=== PATIENT | female | born 1960 | race Caucasian/White ===

== ENCOUNTER → 2018-10-19 | Outpatient (CLI) | payer OTHER ==
[~2018-10-19] MED LIST: AZITHROMYCIN 2250 MG PO; CEFDINIR300 MG PO; MUCINEX600 MG PO; PREDNISONE 1 MG1 M1; PREDNISONE 20 M20 MG PO; SYNTHROID100 MC1 PO; VENTOLIN HFA 1818 GM INH
== END ==
LOC: M.LAB 13:00 → M.CT 13:30 → M.LAB 13:57
PROVIDERS: Family Medicine
DX: J43.2 Centrilobular emphysema (principal); R91.8 Other nonspecific abnormal finding of lung field; J98.4 Other disorders of lung; E03.9 Hypothyroidism, unspecified; E66.8 Other obesity; F17.210 Nicotine dependence, cigarettes, uncomplicated; Z88.8 Allergy status to other drugs, medicaments and biological substances; Z80.3 Family history of malignant neoplasm of breast; Z68.29 Body mass index [BMI] 29.0-29.9, adult

== ENCOUNTER 2018-10-21 08:36 | Inpatient (IN) | payer OTHER ==
[~2018-10-21] VITALS: Ht 154.9 cm; Wt 71.7 kg
[2018-10-21 08:40] VITALS: BP 137/67
[2018-10-21] MEDS ORDERED: SYNTHROID100 MC1 PO (08:48)
[2018-10-21] MEDS ORDERED: PREDNISONE 1 MG1 M1 (08:49)
[2018-10-21 08:59] LABS: ABSOLUTE LYMPHOCYTES 1.2 thou/uL (0.8-5.3); ABSOLUTE MONOCYTES 0.9 thou/uL (0.0-1.2); ABSOLUTE NEUTROPHILS 6.4 thou/uL (1.6-8.1); BASOPHILS 0.5 %; EOSINOPHILS 0.1 %; HEMATOCRIT 40.4 % (37.0-47.0); HEMOGLOBIN 13.7 gm/dL (12.0-15.0); LYMPHOCYTES 14.2 %; MCH 32.2 pg (26.0-34.0); MCHC 33.8 g/dL (28.0-37.0); MCV 95.2 fL (80.0-100.0); MONOCYTES 10.8 %; MPV 7.9 fl. (7.2-11.1); NUCLEATED RBCS 0 /100WBC; PLATELET COUNT* 304 thou/uL (150-400); POLYS 74.4 %; RBC 4.25 mil/uL (4.20-5.00); WBC 8.7 thou/uL (4.0-11.0)
[2018-10-21 09:10] LABS: APTT 30.5 Seconds (25.0-31.3); PROTIME 10.1 Seconds (9.20-11.50)
[2018-10-21 09:12] LABS: ANION GAP 6 mmol/L (7-16); BUN 28 mg/dL (7-18); CALCIUM 9.4 mg/dL (8.5-10.1); CHLORIDE 97 mmol/L (98-107); CO2 33 mmol/L (21-32); CREATININE 0.8 mg/dL (0.6-1.3); GLUCOSE 129 mg/dL (70-99); POTASSIUM 4.1 mmol/L (3.5-5.1); SODIUM 136 mmol/L (136-145)
[2018-10-21 09:19] LABS: ALKALINE PHOSPHATASE 71 U/L (46-116); LIPASE 102 U/L (73-393); MAGNESIUM 2.2 mg/dL (1.8-2.4); NT-PRO BRAIN NAT PEPTIDE 908 pg/mL (<300); SGOT 27 U/L (15-37); SGPT 38 U/L (30-65); TOTAL BILIRUBIN 0.3 mg/dL (<0.1-1.0); TOTAL PROTEIN 8.3 g/dL (6.4-8.2); TROPONIN-I LEVEL <0.06 ng/mL (<0.06)
[2018-10-21 09:30] LABS: BE 5.7 mmol/L (-2 to +3); pH 7.336 (7.340-7.450)
[2018-10-21 09:33] LABS: PCO2 64.5 mmHg (35.0-45.0); PO2 56.4 mmHg (75.0-100.0)
--- NOTE | 2018-10-21 11:47 | NUR ---
LUNCH TRAY ORDERED FOR PT AT THIS TIME.
[2018-10-21 13:30] VITALS: BP 115/58
--- NOTE | 2018-10-21 15:21 | EKG ---
[place] [address] ELECTROCARDIOGRAM REPORT Name: JAYDEN ROSENTHAL Room: [place] [address] ADM IN [facility]#: [id number] Admission: 10/21/18 Attend Phys: Wm Monk MD Discharge: Date of : 56 Report #: [id number] THIS REPORT FOR: //name// [facility] ED Test Date: 2018-10-21 Test Time: 08:56:38 Pat Name: JAYDEN MARTINEZNCER Department: Room: [facility] Gender: F [employer] Dies: Leigh Ann VARGAS : 1960 Requested By: Saul Rose Order Number: [id number] MD: Waqas Rodriguez Measurements Intervals [place] Rate: 98 P: 65 HI: 134 QRS: 67 QRSD: 96 T: 49 QT: 352 QTc: 450 Interpretive Statements Sinus rhythm Minimal ST depression, inferior leads No previous ECG available for comparison Electronically Signed On 10-21-2018 15:20:52 CDT by Waqas Rodriguez [email or web address] <ELECTRONICALLY SIGNED> By: Waqas Rodriguez MD, [facility] 10/21/18 1520 [phone] Waqas Rodriguez MD, [facility] /EPI
[2018-10-21 17:32] VITALS: BP 118/60
[2018-10-21 17:40] VITALS: BP 123/61
--- NOTE | 2018-10-21 18:41 | NUR ---
PATIENT ARRIVED FROM ER THIS EVENING. PATIENT SETTLED TO ROOM. HISTORY, ASSESSMENT AND VITALS COMPLETED AND DOCUMENTED. PATIENT DENIES ANY PAIN. PATIENT DENIES SHORTNESS OF BREATH BUT IS ON 4L/NC WITH OXYGEN SATURATION AT 91%. PATIEN TIS UP AD PINO, EXTENTION TUBING PROVIDED FOR OXYGEN. PATIENT DENIES ANY NEEDS AT THIS TIME. CALL LIGHT WITHIN REACH. WILL CONTINUE TO MONITOR.
[2018-10-21 20:15] VITALS: BP 117/66
[2018-10-22 05:06] LABS: HEMATOCRIT 36.7 % (37.0-47.0); HEMOGLOBIN 12.6 gm/dL (12.0-15.0); MCH 32.7 pg (26.0-34.0); MCHC 34.4 g/dL (28.0-37.0); MCV 95.1 fL (80.0-100.0); MPV 8.1 fl. (7.2-11.1); RBC 3.86 mil/uL (4.20-5.00); RDW-CV 14.1 % (10.5-14.5); WBC 5.9 thou/uL (4.0-11.0)
--- NOTE | 2018-10-22 05:21 | NUR ---
PT SLEPT MOST OF SHIFT. ASSESSMENT DOCUMENTED. MEDS GIVEN PER E-MAR. IV PATENT. NO REPORTS OF PAIN OR NAUSEA. ON 4L NC THIS SHIFT. WILL CONTINUE WITH PLAN OF CARE.
[2018-10-22 06:21] LABS: CALCIUM 9.3 mg/dL (8.5-10.1); CREATININE 0.6 mg/dL (0.6-1.3); MAGNESIUM 2.4 mg/dL (1.8-2.4)
[2018-10-22 08:00] VITALS: BP 107/60
--- NOTE | 2018-10-22 10:23 | NUR ---
Pt is A&O. Resides at home alone. Active and independent. No DME. No hx of HH or SNF. Goal is home at dc. Pt is hopeful that she will wean off o2, does not want home o2 at dc. Following.
--- NOTE | 2018-10-22 16:16 | NUR ---
PATIENT UP TO SHOWER THIS AFTERNOON, PATIENT REFUSED TO WEAR HER 5L NC. EDUCATION GIVEN. IV SL, SCHED ABX INFUSING ORDERED. OVERNIGHT OXIMETRY TO BE DONE. PATIENT HOPING TO GO HOME TOMORROW.
[2018-10-22 17:11] VITALS: BP 119/44
[2018-10-22 21:00] VITALS: BP 102/37
[2018-10-22 21:20] VITALS: BP 139/66
[2018-10-23 04:00] VITALS: BP 107/50
--- NOTE | 2018-10-23 07:28 | NUR ---
PT ALERT AND ORIENTED. UP AD PINO. VSS ON 5L NC. PT TAKES O2 OFF TO GO TO BATHROOM. OVERNIGHT OXIMETRY. MEDS GIVEN AND DOCUMENTED PER EMAR. PT PLEASANT THIS SHIFT. CALL LIGHT WITHIN REACH. HOURLY ROUNDINGS MADE. WILL CONTINUE PLAN OF CARE.
[2018-10-23 07:40] VITALS: BP 100/66
[2018-10-23] MEDS ORDERED: VENTOLIN HFA 1818 GM INH (08:38)
[2018-10-23] MEDS ORDERED: PREDNISONE 20 M20 MG PO (08:38)
[2018-10-23] MEDS ORDERED: MUCINEX600 MG PO (08:38)
[2018-10-23] MEDS ORDERED: AZITHROMYCIN 2250 MG PO (08:38)
[2018-10-23] MEDS ORDERED: CEFDINIR300 MG PO (08:38)
--- NOTE | 2018-10-23 16:31 | NUR ---
PATIENT OK TO DISCHARGE IF ABLE TO GO ON RA. PER OVERNIGHT OXIMETRY PATIENT NEEDING 3L WHILE SLEEPING. DR. LOZANO NOTIFIED AND AWARE THAT PATIENT QUALIFIED FOR HS O2. PER DR. LOZANO IF PATIENT DID NOT REQUIRE 02 WHILE AMBULATING THEN OK TO GO HOME. RT NOTIFIED AND AMBULATED PATIENT. PATIENT 78% ON RA AND REQUIRING 6L WITH AMBULATION. DR. LOZANO NOTIFIED AND HOLD DISCHARGE AT THIS TIME. IV REMAINS SL, STEROIDS DAILY AND ABX PO.
[2018-10-23 16:44] VITALS: BP 112/47
[2018-10-23 18:19] VITALS: BP 112/47
--- NOTE | 2018-10-24 05:49 | NUR ---
PT REMAINED ALERT AND ORIENTED. VITALS STABLE WITH 3L BY NC. PT DENIED PAIN. MEDS GIVEN ORDERED. NO NAUSEA OR VOMITING. UP AD PINO. WILL CONTINUE TO MONITOR.
[2018-10-24 09:50] VITALS: BP 111/56
[2018-10-24 16:00] VITALS: BP 112/49
[2018-10-24 20:30] VITALS: BP 109/53
[2018-10-25 07:50] VITALS: BP 109/53
--- NOTE | 2018-10-25 08:11 | NUR ---
Alert and oriented x 4. Vitals are stable. O2 sat was 90-92% on 2L n/c. She denied any pain. She has been coughing. She has slept well.
[2018-10-25 15:30] VITALS: BP 112/47
--- NOTE | 2018-10-25 15:45 | NUR ---
Pt to dc home alone today. Pt oxygen ordered through [facility], JUANCARLOS faxed referral, order and info to Marielle with [facility]. [facility] spoke with pt and no other dc needs expressed. [facility] [place] [phone] fax [phone]
[2018-10-25 15:54] VITALS: BP 112/47
--- NOTE | 2018-10-25 15:55 | NUR ---
ASSESSSMENT COMPLETE. PT DC HOME WITH PRESCRIPTIONS AND DC INSTRUCTIONS GIVEN. PT VERBALIZES UNDERSTANDING. OXYGEN DELIVERED TO PATIENT, EDUCATION PROVIDED AND PT VERBALIZES UNDERSTANDING. PT LEFT WITH ALL BELONGINGS. SEE ASSESSMENT AND VITALS FOR OTHER DETAILS.
== END 2018-10-25 15:59 | disposition home or self-care (01) | DRG 871 ==
LOC: M.ERS 08:36 → M.TBA-ER 09:23 → M.ORTHSURG 09:23
PROVIDERS: Family Medicine; ADMIT Internal Medicine
DX: A41.9 Sepsis, unspecified organism (principal); J96.02 Acute respiratory failure with hypercapnia; J96.01 Acute respiratory failure with hypoxia; J15.9 Unspecified bacterial pneumonia; J44.0 Chronic obstructive pulmonary disease with (acute) lower respiratory infection; J44.1 Chronic obstructive pulmonary disease with (acute) exacerbation; E03.9 Hypothyroidism, unspecified; R65.20 Severe sepsis without septic shock; Z79.899 Other long term (current) drug therapy; Z88.8 Allergy status to other drugs, medicaments and biological substances

== ENCOUNTER → 2020-07-31 | Outpatient (CLI) | payer OTHER | LOC: M.RAD 07:00 | PROVIDERS: ATTEND Family Medicine | DX: Z12.31 Encounter for screening mammogram for malignant neoplasm of breast (principal) ==